=== PATIENT | male | born 1985 | race Caucasian/White ===

== ENCOUNTER 2017-11-15 12:00 | Emergency (ER) | payer OTHER ==
[~2017-11-15] VITALS: Ht 180.3 cm; Wt 74.8 kg
[2017-11-15] MEDS ORDERED: IBUP800 PO (13:36)
== END 2017-11-15 13:47 | disposition home or self-care (01) ==
LOC: ER 12:00
DX: M25.561 Pain in right knee (principal); F17.200 Nicotine dependence, unspecified, uncomplicated; Z91.041 Radiographic dye allergy status; W22.8XXA Striking against or struck by other objects, initial encounter
CPT/HCPCS: 73562-RT; 99283-25

== ENCOUNTER 2018-03-10 03:06 | Emergency (ER) | payer OTHER ==
[~2018-03-10] VITALS: Ht 177.8 cm; Wt 70.3 kg
[~2018-03-10 03:06] MED LIST: IBUP800 PO
[2018-03-10] MEDS ORDERED: Cyclobenzaprine5 MG PO (04:31)
[2018-03-10] MEDS ORDERED: IBUP600 PO (04:31)
== END 2018-03-10 04:48 | disposition home or self-care (01) ==
LOC: ER 03:06
DX: M54.5 Low back pain (principal); Z91.041 Radiographic dye allergy status
CPT/HCPCS: 99282